=== PATIENT | male | born 1965 | race Caucasian/White ===

== ENCOUNTER 2021-02-15 16:20 | Emergency (ER) | payer OTHER ==
[~2021-02-15] VITALS: Ht 180.3 cm; Wt 100.0 kg
[2021-02-15] MEDS ORDERED: ondansetron 4mg rapidly disintigrating tab PO ONE (16:55)
[2021-02-15] MEDS ORDERED: fentaNYL/PF 50MCG/1 ML 2ML syringe IV ONE ×2 (16:55→17:45)
[2021-02-15] MEDS ORDERED: HYDR-3965 PO (18:13)
[2021-02-15 19:00] VITALS: BP 107/74
== END 2021-02-15 19:02 | disposition home or self-care (01) ==
LOC: ER 16:21
DX: S82.842A Displaced bimalleolar fracture of left lower leg, initial encounter for closed fracture (principal); Z79.899 Other long term (current) drug therapy; W10.1XXA Fall (on)(from) sidewalk curb, initial encounter; Y93.01 Activity, walking, marching and hiking; Y92.89 Other specified places as the place of occurrence of the external cause; Y99.8 Other external cause status
CPT/HCPCS: 27810; 73590; 73600; 99284; J3010; 29515; 96374; 96375; 96376

== ENCOUNTER 2021-05-06 12:43 | Emergency (ER) | payer OTHER ==
[~2021-05-06] VITALS: Ht 180.3 cm; Wt 104.5 kg
[2021-05-06 17:05] VITALS: BP 125/88
== END 2021-05-06 17:24 | disposition home or self-care (01) ==
LOC: ER 12:43
DX: R59.9 Enlarged lymph nodes, unspecified (principal); M79.89 Other specified soft tissue disorders
CPT/HCPCS: 93971; 99284